=== PATIENT | male | born 1990 | race African-American/Black ===

== ENCOUNTER 2022-10-25 14:07 | Emergency (ER) | payer SELFPAY ==
[2022-10-25 14:33] VITALS: BP 134/80; PULSE 78; RESP 20; TEMP 98.4; BMI 27.7
[2022-10-25] MEDS ORDERED: SODIUM CHLORIDE 1,000 ML IV STA (16:38)
[2022-10-25 17:39] LABS: CALCIUM 9.6 mg/dl (8.5-10)
[2022-10-25 17:41] LABS: HEMATOCRIT 41.9 % (35.4-49); HEMOGLOBIN 14.4 G/dL (11.7-16.9); MCH 28.9 pg (25.7-33.7); MCHC 34.3 g/dl (32.0-35.9); MEAN CELL VOLUME 84.1 fl (80-96); MEAN PLT VOLUME 7.5 fl (7.5-11.1); PLATELET COUNT 221.7 10^3/uL (134-434); RBC 4.98 10^6/uL (4.00-5.60); RDW 14.8 % (11.9-15.9); WHITE BLOOD COUNT 9.1 10^3/uL (4.0-10.8)
[2022-10-25] MEDS ORDERED: SILVER NITRATE 75% APPLIC STCK 1 PKT EACH ONE (19:10)
== END 2022-10-25 20:28 | disposition home or self-care (01) ==
LOC: FER 14:07
PROC: 0HQBXZZ Repair Right Upper Arm Skin, External Approach (ICD-10-PCS; principal; 2022-10-25)
DX: S41.111A Laceration without foreign body of right upper arm, initial encounter (principal); S46.321A Laceration of muscle, fascia and tendon of triceps, right arm, initial encounter; W25.XXXA Contact with sharp glass, initial encounter
CPT/HCPCS: 36415; 73060-TC-RT-FY; 80048; 85027; 99284-25

== ENCOUNTER 2022-11-03 15:40 | Emergency (ER) | payer SELFPAY ==
[2022-11-03 15:51] VITALS: BP 120/71; PULSE 72; RESP 18; TEMP 98.3; BMI 20.3
== END 2022-11-03 18:11 | disposition home or self-care (01) ==
LOC: FER 15:40
DX: M25.521 Pain in right elbow (principal); Z48.02 Encounter for removal of sutures
CPT/HCPCS: 99281-25